=== PATIENT | female | born 1990 | race Hispanic/Latino ===

== ENCOUNTER 2018-10-23 18:18 | Emergency (ER) | payer SELFPAY ==
[2018-10-23 18:54] VITALS: BP 132/110
[2018-10-23] MEDS ORDERED: TYLENOL PO ONE (18:55)
[2018-10-23] MEDS ORDERED: IBUPROFEN PO ONE ×3 (18:55→18:59)
--- NOTE | 2018-10-23 18:55 | Emergency Department Report ---
Blank Doc - Documentation Documentation: 28 y.o. female presents with low back pain radiating down both legs. Taking na proxen without relief. History of sciatica. No other cc. XR ordered [facility] for evaluation
[2018-10-23] MEDS ORDERED: TYLENOL ONE (18:59)
--- NOTE | 2018-10-23 20:06 | XRay Report ---
FINAL REPORT PROCEDURE: XR SPINE LUMBOSACRAL 2-3V TECHNIQUE: Lumbosacral spine, three views HISTORY: low back pain COMPARISON: No prior studies are available for comparison. FINDINGS: No scoliosis. The vertebral body heights and alignment are maintained. Disc spaces are preserved. IMPRESSION: No acute osseous abnormality is identified
--- NOTE | 2018-10-23 23:07 | Emergency Department Report ---
ED Back Pain/Injury HPI - General Chief Complaint: Back Pain/Injury Stated Complaint: BACK PAIN Time Seen by Provider: 10/23/18 18:51 Source: patient Limitations: No Limitations - History of Present Illness Initial Comments: Patient's a 71-year-old white female who presents for low back pain right the past month patient denies fall or injury or trauma denies dysuria frequency or urgency patient does have 3 small children that she has to carry upstairs numbness or weakness no paralysis loss or decrease in bowel or bladder function was a lumbar series x-ray ordered in triage were UA is a period was 2 weeks ago will rule out UTI and treated appropriately Complaint: back pain Onset/Timin -: month(s) Similar Symptoms Previously: Yes Place: home Radiation: buttocks Severity: moderate Severity scale (0 -10): 4 Quality: aching Consistency: intermittent Improves With: none Worsens With: movement, sitting upright, walking Context: while lifting, turning/twisting, bending Associated Symptoms: denies: weakness, numbness, difficulty urinating, incontinence, fever/chills, constipation - Related Data Previous Rx's Medication Instructions Recorded Last Taken Type Cyclobenzaprine [Flexeril] 10 mg PO TID PRN #30 tablet 10/23/18 Unknown Rx Menthol/Camphor [[place] 1 applicatio TD QID PRN #1 tube 10/23/18 Unknown Rx Ointment] Naproxen [Naprosyn TAB] 500 mg PO BID PRN #30 tablet 10/23/18 Unknown Rx Allergies Allergy/AdvReac Type Severity Reaction Status Date / Time Sulfa (Sulfonamide Allergy Unknown Verified 09/13/18 13:46 Antibiotics) ED Review of Systems ROS: Stated complaint: BACK PAIN Other details as noted in HPI Constitutional: denies: chills, fever Eyes: denies: eye pain, eye discharge, vision change ENT: denies: ear pain, throat pain Respiratory: denies: cough, shortness of breath, wheezing Cardiovascular: denies: chest pain, palpitations Endocrine: no symptoms reported Gastrointestinal: denies: abdominal pain, nausea, vomiting, diarrhea, constipation Genitourinary: denies: urgency, dysuria, frequency, hematuria, discharge, abnormal menses, dyspareunia Musculoskeletal: back pain. denies: joint swelling, arthralgia Skin: denies: rash, lesions Neurological: denies: headache, weakness, paresthesias Psychiatric: denies: anxiety, depression Hematological/Lymphatic: denies: easy bleeding, easy bruising ED Past Medical Hx - Social History Smoking Status: Current Every Day Smoker Substance Use Type: None - Medications Home Medications: Home Medications Medication Instructions Recorded Confirmed Last Taken Type Cyclobenzaprine [Flexeril] 10 mg PO TID PRN #30 tablet 10/23/18 Unknown Rx Menthol/Camphor [[place] 1 applicatio TD QID PRN #1 tube 10/23/18 Unknown Rx Ointment] Naproxen [Naprosyn TAB] 500 mg PO BID PRN #30 tablet 10/23/18 Unknown Rx ED Physical Exam - General Limitations: No Limitations General appearance: alert, in no apparent distress - Head Head exam: Present: atraumatic, normocephalic - Eye Eye exam: Present: normal appearance, PERRL, EOMI Pupils: Present: normal accommodation - ENT ENT exam: Present: mucous membranes moist - Neck Neck exam: Present: normal inspection. Absent: tenderness, full ROM, lymphadenopathy, thyromegaly - Respiratory Respiratory exam: Present: normal lung sounds bilaterally. Absent: respiratory distress, wheezes, stridor - Cardiovascular Cardiovascular Exam: Present: regular rate, normal rhythm, normal heart sounds. Absent: systolic murmur, diastolic murmur, rubs, gallop - GI/Abdominal GI/Abdominal exam: Present: soft, normal bowel sounds. Absent: tenderness, bruit, hernia - Rectal Rectal exam: Present: deferred - Extremities Exam Extremities exam: Present: normal inspection, full ROM, normal capillary refill. Absent: tenderness, pedal edema, joint swelling, calf tenderness - Back Exam Back exam: Present: normal inspection, full ROM, tenderness (right lumbar muscle tenderness to deep palpation no posterior vertebral point tenderenss rom intact unrestricted. ), muscle spasm. Absent: CVA tenderness (R), CVA tenderness (L), paraspinal tenderness, vertebral tenderness, rash noted - Neurological Exam Neurological exam: Present: alert, oriented X3, CN II-XII intact, normal gait - Expanded Neurological Exam Expanded Patient oriented to: Present: person, place, time Speech: Present: fluid speech Cerebellar function: Finger to Nose: Normal, Heel to Dejesus: Normal, Romberg: Normal Upper motor neuron: Robi Neglect: Normal, Pronator Drift: Normal, Babinski Sign: Normal, Sensory Extinction: Normal Sensory exam: Lower Extremity Light Touch: Normal, Lower Extremity Pin Prick: Normal, Lower Extremity Temperature: Normal, LE 2 Point Discrimination: Normal Motor strength exam: RUE: 5, LUE: 5, RLE: 5, LLE: 5 DTR: knee (R): 2+, knee (L): 2+, ankle (R): 2+, ankle (L): 2+ Best Eye Response ([place]): (4) open spontaneously Best Motor Response ([place]): (6) obeys commands Best Verbal Response ([place]): (5) oriented C[place]ar Total: 15 - Psychiatric Psychiatric exam: Present: normal affect, normal mood - Skin Skin exam: Present: warm, dry, intact, normal color. Absent: rash ED Course Vital Signs 10/23/18 10/23/18 18:53 19:59 Temperature 98.3 F Pulse Rate 73 Respiratory 16 18 Rate Blood Pressure 132/110 O2 Sat by Pulse 99 Oximetry ED Medical Decision Making - Lab Data Labs 10/23/18 23:20 Urine Color [place] Urine Turbidity Clear Urine pH 5.0 Ur Specific [place] 1.035 H Urine Protein <15 mg/dl Urine Glucose (UA) Neg Urine Ketones Tr Urine Blood Neg Urine Nitrite Neg Urine Bilirubin Sm Urine Ictotest Negative Urine Urobilinogen 4.0 Ur Leukocyte Esterase Sm Urine WBC (Auto) 2.0 Urine RBC (Auto) 10.0 U Epithel Cells (Auto) 3.0 Urine Mucus 2+ - Radiology Data Radiology results: report reviewed, image reviewed FINAL REPORT PROCEDURE: XR SPINE LUMBOSACRAL 2-3V TECHNIQUE: Lumbosacral spine, three views HISTORY: low back pain COMPARISON: No prior studies are available for comparison. FINDINGS: No scoliosis. The vertebral body heights and alignment are maintained. Disc spaces are preserved. IMPRESSION: No acute osseous abnormality is identified Transcribed By: [facility] Dictated By: KENNY BYRD M.D. Electronically Authenticated By: KENNY BYRD M.D. Signed Date/Time: 10/23/182005 - Medical Decision Making This is a Lumbar strain urine is normal x-ray no fracture no soft tissue abnormality Critical care attestation.: If time is entered above; I have spent that time in minutes in the direct care of this critically ill patient, excluding procedure time. ED Disposition Clinical Impression: Lumbar strain Qualifiers: Encounter type: initial encounter Qualified Code(s): S39.012A - Strain of muscle, fascia and tendon of lower back, initial encounter Disposition: TO HOME OR SELFCARE Is pt being admited?: No Does the pt Need Aspirin: No Condition: Stable Instructions: Low Back Strain (ED), Core Strengthening Exercises (GEN) Prescriptions: Cyclobenzaprine [Flexeril] 10 mg PO TID PRN #30 tablet PRN Reason: Muscle Spasm Menthol/Camphor [[place] Ointment] 1 applicatio TD QID PRN #1 tube PRN Reason: pain Naproxen [Naprosyn TAB] 500 mg PO BID PRN #30 tablet PRN Reason: pain Referrals: [facility] [Outside] - 3-5 Days Forms: Work/School Release Form(ED) Time of Disposition: 23:49
[2018-10-23 23:35] LABS: Bilirubin,Urine SM (Negative); Blood,Urine NEG (Negative); Color,Urine Amber (Yellow); Mucus,Urine 2+ /HPF; Protein,Urine <15 mg/dL mg/dL (Negative)
[2018-10-23 23:40] LABS: Ictotest,Urine Negative (Negative)
== END 2018-10-23 23:55 | disposition home or self-care (01) ==
LOC: ED 18:18
DX: S39.012A Strain of muscle, fascia and tendon of lower back, initial encounter (principal); F17.200 Nicotine dependence, unspecified, uncomplicated; Z88.2 Allergy status to sulfonamides; X58.XXXA Exposure to other specified factors, initial encounter; Y93.89 Activity, other specified; Y92.009 Unspecified place in unspecified non-institutional (private) residence as the place of occurrence of the external cause; Y99.8 Other external cause status
CPT/HCPCS: 72100; 81001

== ENCOUNTER 2018-11-11 19:00 | Emergency (ER) | payer SELFPAY ==
--- NOTE | 2018-11-11 19:39 | Emergency Department Report ---
Blank Doc - Documentation Documentation: This is a 28-year-old female that presents with chronic lower back pain. Denies any injuries or trauma. Denies any urinary symptoms. This initial assessment diagnostic orders/clinical plan/treatment(s) is/are subject to change based on patient's health status, clinical progression and re- assessment by fellow clinical providers in the ED. Further treatment and workup at subsequent clinical providers discretion. Patient/guardians urged not to elope from ED s their condition may be serious if not clinically assessed and managed. Initial orders include: 1-Patient sent to [facility] for further evaluation and treatment
== END 2018-11-11 19:46 | disposition left against medical advice (07) ==
LOC: ED 19:00